=== PATIENT | male | born 1955 | race Caucasian/White ===

== ENCOUNTER 2017-10-07 14:54 | Day surgery (SDC) | payer OTHER ==
[~2017-10-07] VITALS: Ht 167.6 cm; Wt 99.8 kg
[2017-10-07] MEDS ORDERED: LACTATED RINGERS 1,000 ML IV SCH ×2 (15:32→20:00)
[2017-10-07] MEDS ORDERED: OXYC-302 PO (15:34)
[2017-10-07] MEDS ORDERED: CYAN250013 PO (15:34)
[2017-10-07] MEDS ORDERED: TRAZADONE PO (15:34)
[2017-10-07 15:42] VITALS: BP 145/86
[2017-10-07] MEDS ORDERED: FENTANYL PF 100 MCG/2ML ONE ×2 (16:14→18:14)
[2017-10-07] MEDS ORDERED: MIDAZOLAM 1 MG/ML, 2ML ONE (16:14)
[2017-10-07] MEDS ORDERED: BUPIVACAINE/PF 0.5% ONE (16:29)
[2017-10-07] MEDS ORDERED: EPINEPHRINE 1 MG/ML, 1ML ONE (16:29)
[2017-10-07] MEDS ORDERED: GLYCOPYRROLATE 0.2MG/1ML, 5ML ONE (16:48)
[2017-10-07] MEDS ORDERED: SUCCINYLCHOLINE 20 MG/ML, 10ML ONE (16:48)
[2017-10-07] MEDS ORDERED: ONDANSETRON 2MG/ML, 2ML ONE (16:48)
[2017-10-07] MEDS ORDERED: NEOSTIGMINE 1 MG/ML, 10ML ONE (16:48)
[2017-10-07] MEDS ORDERED: PROPOFOL 10 MG/ML, 20ML ONE (16:48)
[2017-10-07] MEDS ORDERED: ROCURONIUM 10 MG/ML,10ML ONE (16:48)
[2017-10-07] MEDS ORDERED: CEFAZOLIN 1,000 MG ONE (16:48)
[2017-10-07] MEDS ORDERED: BACITRACIN 50,000 UNIT ONE (17:04)
[2017-10-07] MEDS ORDERED: METOCLOPRAMIDE 5 MG/ML, 2ML IV PRN (17:30)
[2017-10-07] MEDS ORDERED: FENTANYL PF 100 MCG/2ML IV PRN (17:30)
[2017-10-07] MEDS ORDERED: HYDROmorphone 1 MG/ML, 1ML IV PRN (17:30)
[2017-10-07] MEDS ORDERED: LABETALOL 5MG/ML, 20ML IV PRN (17:30)
[2017-10-07] MEDS ORDERED: ACETAMINOPHEN 325 MG TABLET PO PRN (17:30)
[2017-10-07] MEDS ORDERED: hydrALAzine 20 MG/ML, 1ML IV PRN (17:30)
[2017-10-07] MEDS ORDERED: OXYcodone 5 MG/5 ML ORAL.SOL UDC PO PRN (17:30)
[2017-10-07] MEDS ORDERED: ONDANSETRON 2MG/ML, 2ML IVPush PRN (17:30)
[2017-10-07] MEDS ORDERED: OXYcodone 5 MG/5 ML ORAL.SOL UDC ONE (18:14)
[2017-10-07] MEDS ORDERED: OXYC-306 PO (19:48)
[2017-10-07] MEDS ORDERED: OXYcodone/APAP 5/325MG TABLET PO PRN (20:00)
[2017-10-07] MEDS ORDERED: ONDANSETRON 2MG/ML, 2ML IV PRN (20:00)
[2017-10-07 20:16] VITALS: BP 126/83
== END 2017-10-07 21:18 | disposition home or self-care (01) ==
LOC: OR 14:54 → 4NOR 19:40 → OR 21:18
PROVIDERS: ATTEND Orthopaedic Surgery
DX: S63.114A Dislocation of metacarpophalangeal joint of right thumb, initial encounter (principal); I10 Essential (primary) hypertension; Z98.890 Other specified postprocedural states; X58.XXXA Exposure to other specified factors, initial encounter; Y93.89 Activity, other specified; Y92.89 Other specified places as the place of occurrence of the external cause; Y99.8 Other external cause status
CPT/HCPCS: 26715; 73140; 76000; 93005; J0171; J0330; J0690; J2250; J2405; J2704; J2710; J3010; J3490; J7120

== ENCOUNTER 2018-02-12 13:49 | Day surgery (SDC) | payer OTHER ==
[~2018-02-12] VITALS: Ht 167.6 cm; Wt 106.5 kg
[~2018-02-12 13:49] MED LIST: CYAN250013 PO; OXYC-302 PO; OXYC-306 PO; TRAZADONE PO
[2018-02-12] MEDS ORDERED: BUPIVACAINE/PF 0.5% ONE (14:09)
[2018-02-12] MEDS ORDERED: LACTATED RINGERS 1,000 ML IV SCH (14:34)
[2018-02-12] MEDS ORDERED: ACETAMINOPHEN 500 MG TABLET ONE (14:42)
[2018-02-12] MEDS ORDERED: ONDANSETRON ODT 8 MG ONE (14:42)
[2018-02-12 14:49] VITALS: BP 133/83
[2018-02-12] MEDS ORDERED: ACETAMINOPHEN 500 MG TABLET PO ONE (15:00)
[2018-02-12] MEDS ORDERED: ONDANSETRON ODT 8 MG PO PRN (15:00)
[2018-02-12] MEDS ORDERED: PROPOFOL 10 MG/ML, 20ML ONE (15:09)
[2018-02-12] MEDS ORDERED: MIDAZOLAM 1 MG/ML, 2ML ONE (15:09)
[2018-02-12] MEDS ORDERED: ALBUTEROL/IPRATROPIUM 2.5MG/0.5MG, 3 ML NPPB PRN (16:00)
[2018-02-12] MEDS ORDERED: LABETALOL 5MG/ML, 20ML IV PRN (16:00)
[2018-02-12] MEDS ORDERED: DIAZEPAM 5 MG/ML, 2ML IVPush PRN (16:00)
[2018-02-12] MEDS ORDERED: PROMETHAZINE 25 MG/ML, 1ML IV PRN (16:00)
[2018-02-12] MEDS ORDERED: ONDANSETRON 2MG/ML, 2ML IVPush PRN (16:00)
[2018-02-12] MEDS ORDERED: MORPHINE SULFATE 4 MG/ML, 1ML IV PRN (16:00)
[2018-02-12] MEDS ORDERED: MEPERIDINE/PF 25MG/0.5ML IVPush PRN (16:00)
[2018-02-12] MEDS ORDERED: METOCLOPRAMIDE 5 MG/ML, 2ML IV PRN (16:00)
[2018-02-12] MEDS ORDERED: hydrALAzine 20 MG/ML, 1ML IV PRN (16:00)
[2018-02-12] MEDS ORDERED: OXYcodone 5 MG/5 ML ORAL.SOL UDC PO PRN (16:00)
[2018-02-12] MEDS ORDERED: FENTANYL PF 100 MCG/2ML IV PRN (16:00)
[2018-02-12] MEDS ORDERED: PROMETHAZINE 12.5 MG SUPP PR PRN (16:00)
[2018-02-12] MEDS ORDERED: MIDAZOLAM 1 MG/ML, 2ML IV PRN (16:00)
[2018-02-12] MEDS ORDERED: BUPIVACAINE/PF-EPI 0.5% 1:200K IM ONE (16:08)
== END 2018-02-12 18:15 | disposition home or self-care (01) ==
LOC: OR 13:49
PROVIDERS: ATTEND Orthopaedic Surgery
DX: Z47.2 Encounter for removal of internal fixation device (principal); B19.20 Unspecified viral hepatitis C without hepatic coma; Z85.46 Personal history of malignant neoplasm of prostate; I10 Essential (primary) hypertension; Z98.890 Other specified postprocedural states; Z79.899 Other long term (current) drug therapy
CPT/HCPCS: 20680; 73140; 76000; 93005; J2250; J2704; J3490; J7120; Q0162